=== PATIENT | male | born 1990 | race Caucasian/White ===

== ENCOUNTER 2020-08-05 11:20 | Emergency (ER) | payer MEDICAID, OTHER ==
[~2020-08-05] VITALS: Ht 177.8 cm; Wt 80.0 kg
[2020-08-05 11:33] VITALS: BP 142/82
[2020-08-05] MEDS ORDERED: HYDROcodone/APAP 5/325 TABLET PO PRN (12:00)
[2020-08-05] MEDS ORDERED: HYDROcodone/APAP 5/325 TABLET ONE (12:01)
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
--- NOTE | 2020-08-05 13:14 | NUR ---
Patient/Caregiver given discharge instructions and they have confirmed that they understand the instructions. Patient D/C WITH crutches with slow steady gait.
== END 2020-08-05 13:16 | disposition home or self-care (01) ==
LOC: ED 12:57
DX: S93.402A Sprain of unspecified ligament of left ankle, initial encounter (principal); S90.31XA Contusion of right foot, initial encounter; X50.1XXA Overexertion from prolonged static or awkward postures, initial encounter; Y93.89 Activity, other specified; Y92.009 Unspecified place in unspecified non-institutional (private) residence as the place of occurrence of the external cause; Y99.8 Other external cause status
CPT/HCPCS: 99284